=== PATIENT | female | born 1985 | race African-American/Black ===

== ENCOUNTER → 2019-05-06 13:09 | Outpatient (CLI) | payer OTHER | END | disposition home or self-care (01) | LOC: D.US 13:09 | PROVIDERS: ATTEND Nurse Practitioner Family | DX: N18.3 Chronic kidney disease, stage 3 (moderate) (principal); I10 Essential (primary) hypertension ==

== ENCOUNTER 2019-05-31 14:46 | Emergency (ER) | payer OTHER ==
[~2019-05-31] VITALS: Ht 160 cm; Wt 58.2 kg
[2019-05-31 14:50] VITALS: Ht 160 cm; Wt 58.2 kg
[2019-05-31] MEDS ORDERED: BP MED? (14:53)
[2019-05-31 17:10] VITALS: BP 141/90
== END 2019-05-31 17:12 | disposition home or self-care (01) ==
LOC: D.ER 14:46
DX: I10 Essential (primary) hypertension (principal)

== ENCOUNTER 2020-12-09 13:30 | Emergency (ER) | payer OTHER ==
[~2020-12-09] VITALS: Ht 160 cm; Wt 55.0 kg
[~2020-12-09 13:30] MED LIST: BP MED?
[2020-12-09 13:33] VITALS: BP 167/102; Ht 160 cm; Wt 55.0 kg
[2020-12-09] MEDS ORDERED: UNK BP MED (13:36)
[2020-12-09] MEDS ORDERED: [UNRECOGNIZED DRUG - REMARK] (13:37)
[2020-12-09] MEDS ORDERED: [UNRECOGNIZED DRUG - REMARK] (13:37)
[2020-12-09] MEDS ORDERED: FERROUS SULFAT325 MG PO (13:37)
[2020-12-09 14:18] LABS: BASOPHILS 0 % (0-2); EOSINOPHILS 0.2 % (0-7); HEMATOCRIT 38.8 % (36.0-48.0); HEMOGLOBIN 12.6 g/dL (12-16); IMMATURE GRANULOCYTES 0.2 % (0-5); LYMPHOCYTE ABS# 1.92 10x3/uL (1.18-3.74); LYMPHOCYTES 22.4 % (15-50); MCH 28.4 pg (26.0-34.0); MCHC 32.5 g/dL (31.0-37.0); MCV 87.6 fL (80.0-100.0); MEAN PLATELET VOLUME 9.5 fL (7.4-10.4); MONOCYTES 7.9 % (2-11); NEUTROPHIL ABS# 5.95 10x3/uL (1.56-6.13); NEUTROPHILS 69.3 % (40-80); PLATELET COUNT 331 10x3/uL (130-400); RBC 4.43 10x6/uL (4.00-5.40); WBC 8.6 10x3/uL (4.8-10.8)
[2020-12-09 14:35] LABS: BILIRUBIN NEGATIVE (NEGATIVE); KETONE SMALL mg/dL (NEGATIVE); NITRITE NEGATIVE (NEGATIVE); UROBILINOGEN NORMAL mg/dL (< 2)
[2020-12-09 14:37] LABS: BACTERIA MODERATE HPF (NONE SEEN); WHITE CELLS - URINE 0-5 HPF (0-4)
[2020-12-09 14:42] LABS: ALBUMIN 3.6 g/dL (3.4-5.0); ALKALINE PHOSPHATASE 96 U/L (30-120); ALT (SGPT) 79 U/L (10-68); AMYLASE - SERUM 55 U/L (25-115); BILIRUBIN - TOTAL 0.37 mg/dL (0.2-1.3); CALC OSMOLALITY 278 mosm/kg (275-300); CALCIUM 10.6 mg/dL (8.5-10.1); CARBON DIOXIDE 28.4 mmol/L (21.0-32.0); CHLORIDE - SERUM 99 mmol/L (98-107); GLUCOSE 94 mg/dL (74-106); LIPASE 82 U/L (73-393); PROTEIN - SERUM 8.2 g/dL (6.4-8.2); SODIUM 139 mmol/L (136-145); TROPONIN-I < 0.017 ng/mL (0.000-0.060); UREA NITROGEN 16 mg/dL (7-18); eGFR NON AFRICAN AMERICAN 67 mL/min (90-120)
[2020-12-09 14:43] LABS: POTASSIUM - SERUM 2.8 mmol/L (3.5-5.1)
[2020-12-09 14:55] LABS: HCG SERUM NEGATIVE (NEGATIVE)
== END 2020-12-09 16:23 | disposition home or self-care (01) ==
LOC: D.ER 13:30
PROVIDERS: Family Medicine
DX: R07.9 Chest pain, unspecified (principal); R00.0 Tachycardia, unspecified; F14.10 Cocaine abuse, uncomplicated; F10.10 Alcohol abuse, uncomplicated; Y90.9 Presence of alcohol in blood, level not specified; I10 Essential (primary) hypertension; K21.9 Gastro-esophageal reflux disease without esophagitis; R11.2 Nausea with vomiting, unspecified

== ENCOUNTER 2020-12-15 09:23 | Inpatient (IN) | payer OTHER ==
[~2020-12-15] VITALS: Ht 160 cm; Wt 59.1 kg
[~2020-12-15 09:23] MED LIST changes: +FERROUS SULFAT325 MG PO; +UNK BP MED; +[UNRECOGNIZED DRUG - REMARK]; +[UNRECOGNIZED DRUG - REMARK]
--- NOTE | 2020-12-15 09:54 | NUR ---
RADIOLOGY AT BEDSIDE FOR X RAY.
[2020-12-15 10:06] LABS: BASOPHILS 0.1 % (0-2); EOSINOPHILS 0.6 % (0-7); HEMATOCRIT 40.3 % (36.0-48.0); HEMOGLOBIN 13.4 g/dL (12-16); IMMATURE GRANULOCYTES 0.2 % (0-5); LYMPHOCYTE ABS# 2.35 10x3/uL (1.18-3.74); LYMPHOCYTES 27.6 % (15-50); MCH 28.5 pg (26.0-34.0); MCHC 33.3 g/dL (31.0-37.0); MCV 85.6 fL (80.0-100.0); MEAN PLATELET VOLUME 9.7 fL (7.4-10.4); MONOCYTES 12.1 % (2-11); NEUTROPHIL ABS# 5.04 10x3/uL (1.56-6.13); NEUTROPHILS 59.4 % (40-80); PLATELET COUNT 336 10x3/uL (130-400); RBC 4.71 10x6/uL (4.00-5.40); RDW 12.8 % (11.5-14.5); WBC 8.5 10x3/uL (4.8-10.8)
[2020-12-15 10:16] VITALS: BP 186/111
[2020-12-15 10:31] LABS: ALBUMIN 3.2 g/dL (3.4-5.0); ALKALINE PHOSPHATASE 81 U/L (30-120); ALT (SGPT) 94 U/L (10-68); BILIRUBIN - TOTAL 0.42 mg/dL (0.2-1.3); CALC OSMOLALITY 273 mosm/kg (275-300); CALCIUM 10.6 mg/dL (8.5-10.1); CARBON DIOXIDE 34.1 mmol/L (21.0-32.0); CHLORIDE - SERUM 96 mmol/L (98-107); CREATINE KINASE 44 UL (21-215); GLUCOSE 134 mg/dL (74-106); PRO BNP 336 pg/mL (0-125); PROTEIN - SERUM 7.9 g/dL (6.4-8.2); SODIUM 135 mmol/L (136-145); TROPONIN-I < 0.017 ng/mL (0.000-0.060); UREA NITROGEN 17 mg/dL (7-18); eGFR NON AFRICAN AMERICAN 67 mL/min (90-120)
[2020-12-15 10:32] LABS: APTT 28.1 SECONDS (22.8-39.4); INR 1.16 (0.85-1.17); POTASSIUM - SERUM 2.5 mmol/L (3.5-5.1); PROTIME 13.7 SECONDS (11.6-15.0)
[2020-12-15 10:43] LABS: HCG SERUM NEGATIVE (NEGATIVE)
[2020-12-15 10:48] LABS: D-DIMER-QUANTITATIVE < 0.27 ug/mLFEU (0.20-0.54)
--- NOTE | 2020-12-15 11:05 | NUR ---
PATIENT REPORTS SHE STILL FEELS FATIGUED.
--- NOTE | 2020-12-15 11:54 | NUR ---
PATIENT ASSISTED TO BATHROOM FOR URINE SAMPLE
--- NOTE | 2020-12-15 12:06 | NUR ---
URINE SAMPLE SENT TO LAB.
[2020-12-15 12:08] VITALS: BP 182/108
[2020-12-15 13:01] LABS: BACTERIA FEW HPF (NONE SEEN); BILIRUBIN NEGATIVE (NEGATIVE); KETONE SMALL mg/dL (NEGATIVE); NITRITE NEGATIVE (NEGATIVE); SQUAMOUS EPITHELIAL 0-5 HPF (0-4); UROBILINOGEN 4 mg/dL (< 2); WHITE CELLS - URINE 0-5 HPF (0-4)
[2020-12-15 13:14] LABS: UDS - AMPHET NEGATIVE QUAL (NEGATIVE); UDS - BARB NEGATIVE QUAL (NEGATIVE); UDS - BENZO NEGATIVE QUAL (NEGATIVE); UDS - COCAINE NEGATIVE QUAL (NEGATIVE); UDS - OPIATE NEGATIVE QUAL (NEGATIVE); UDS - PCP NEGATIVE QUAL (NEGATIVE); UDS - THC POSITIVE QUAL (NEGATIVE)
--- NOTE | 2020-12-15 13:53 | NUR ---
DR CJ SKY AT BEDSIDE.
--- NOTE | 2020-12-15 14:00 | NUR ---
ATTEMPTED TO CALL REPORT TO [facility] FOR ROOM 0. STATES THAT NURSE IS UNAVAILABLE TO TAKE REPORT. WILL REATTEMPT.
--- NOTE | 2020-12-15 14:20 | NUR ---
NURSING ROUND PERFORMED. DANIEL.
[2020-12-15 14:36] VITALS: BP 185/99
--- NOTE | 2020-12-15 14:36 | NUR ---
REPORT GIVEN TO FRANKLIN VILLA ON MED II.
[2020-12-15] MEDS ORDERED: PROTONIX40 MG PO (15:08)
[2020-12-15] MEDS ORDERED: KEPPRA500 MG PO (15:08)
[2020-12-15] MEDS ORDERED: BISOPROLOL-HCT1 EAC1 PO (15:09)
[2020-12-15 15:33] VITALS: BP 167/112; Ht 160 cm; Wt 59.1 kg
[2020-12-15 16:31] VITALS: BP 170/94
[2020-12-15 16:50] LABS: ERYTHROCYTE SEDIMENTATION RATE 32 mm/hr (0-20)
[2020-12-15 19:10] LABS: C-REACTIVE PROTEIN 0.8 mg/dL (0.0-0.9)
[2020-12-15 19:19] LABS: POTASSIUM - SERUM 3.5 mmol/L (3.5-5.1)
--- NOTE | 2020-12-15 19:56 | NUR ---
RECEIVED REPORT, WILL ASSUME CARE OF PT, RESTING, NO DISTRESS NOTICED AT THIS TIME, BED IS LOW, SRX2, CALL LIGHT IN REACH, WILL CONTINUE PLAN OF CARE
--- NOTE | 2020-12-15 21:00 | NUR ---
SPOKE WITH ISAURO ABOUT HR@ 140, WILL FOLLOW FOR NEW ORDERS
[2020-12-15 21:54] VITALS: BP 159/83
[2020-12-16 00:52] VITALS: BP 112/70
[2020-12-16 05:18] VITALS: BP 115/69
[2020-12-16 05:52] LABS: BASOPHILS 0.2 % (0-2); EOSINOPHILS 1.5 % (0-7); HEMATOCRIT 33.1 % (36.0-48.0); IMMATURE GRANULOCYTES 0.3 % (0-5); LYMPHOCYTE ABS# 2.48 10x3/uL (1.18-3.74); LYMPHOCYTES 38.4 % (15-50); MCH 27.7 pg (26.0-34.0); MCV 86.4 fL (80.0-100.0); MEAN PLATELET VOLUME 9.5 fL (7.4-10.4); MONOCYTES 14.4 % (2-11); NEUTROPHIL ABS# 2.92 10x3/uL (1.56-6.13); NEUTROPHILS 45.2 % (40-80); PLATELET COUNT 294 10x3/uL (130-400); RBC 3.83 10x6/uL (4.00-5.40); RDW 12.8 % (11.5-14.5); WBC 6.5 10x3/uL (4.8-10.8)
[2020-12-16 06:07] LABS: HEMOGLOBIN 10.6 g/dL (12-16)
[2020-12-16 06:26] LABS: ALBUMIN 2.4 g/dL (3.4-5.0); ALKALINE PHOSPHATASE 57 U/L (30-120); ALT (SGPT) 60 U/L (10-68); BILIRUBIN - TOTAL 0.36 mg/dL (0.2-1.3); CALC OSMOLALITY 274 mosm/kg (275-300); CALCIUM 9.4 mg/dL (8.5-10.1); CARBON DIOXIDE 28.9 mmol/L (21.0-32.0); CHLORIDE - SERUM 103 mmol/L (98-107); CREATININE - SERUM 0.7 mg/dL (0.6-1.3); GLUCOSE 93 mg/dL (74-106); MAGNESIUM - SERUM 2.3 mg/dL (1.8-2.4); PHOSPHOROUS 3.5 mg/dL (2.5-4.9); POTASSIUM - SERUM 3.4 mmol/L (3.5-5.1); PROTEIN - SERUM 5.8 g/dL (6.4-8.2); SODIUM 138 mmol/L (136-145); UREA NITROGEN 11 mg/dL (7-18); eGFR NON AFRICAN AMERICAN > 90 mL/min (90-120)
[2020-12-16 06:37] LABS: APTT 29.7 SECONDS (22.8-39.4); INR 1.23 (0.85-1.17); PROTIME 14.4 SECONDS (11.6-15.0)
[2020-12-16 07:00] VITALS: BP 115/70
[2020-12-16] MEDS ORDERED: BISOPROLOL FUMAR5 MG PO (12:35)
[2020-12-16] MEDS ORDERED: KLOR-CON M2020 MEQ PO (12:36)
--- NOTE | 2020-12-16 14:38 | MORECARE ---
CASE MANAGEMENT DISCHARGE SUMMARY PATIENT: SHIVA SUNSHINE UNIT: [id number] ADM DATE: 12/15/20 AGE: 35 : 87 SEX: F ROOM/BED: D.4990 AUTHOR: ALLEN GAN PHYSICIAN: REFERRING PHYSICIAN: ANATOLIY CORONA MD DATE OF SERVICE: 12/16/20 Discharge Plan Patient Name: SHIVA SUNSHINE Facility: [facility]:[place] : 1985 Planned Disposition: Home Anticipated Discharge Date: 12/16/20 Discharge Date: Expected LOS: 1 Initial Reviewer: NAVDEEP Initial Review Date: 12/15/2020 Generated: 12/16/20 3:37 pm Comments DCP- Discharge Planning Updated by [email or web address]: Cliff Meyer on 12/16/20 1:[address] CM met with patient to complete DC plan and to evaluate needs. Patient lives independently with family. At discharge, the patient plans to return home and feels this is a safe discharge. CM discussed availability of home health, rehab services, and medical equipment. Patient declined HHS, SNF, IPR, and DME. Patient voiced no other needs at this time and is satisfied with DC plan. CM will continue to follow and will assist as needed with dc plans/needs. DCPIA - Discharge Planning Initial Assessment Updated by [email or web address]: Cliff Meyer on 12/16/20 2:35 pm * Is the patient Alert and Oriented? Yes * How many steps to enter\exit or inside your home? 3/0 * PCP JOSE * Pharmacy AD * Preadmission Environment Home with Family * ADLs Independent * Equipment None * Other Equipment N/A * Community resources currently utilized None * Please name any agencies selected above. N/A * Additional services required to return to the preadmission environment? No * Can the patient safely return to the preadmission environment? Yes * Has this patient been hospitalized within the prior 30 days at any hospital? No Patient Name: SHIVA SUNSHINE Page 19792 at 1435 All edits/amendments must be made on the electronic document DICTATION DATE: 12/16/20 1438 WOOD TANK ERECTOR: GIANNA 12/16/20 1438 RPT#: [id number] DC DATE: STATUS: ADM IN [facility] [address] [place] [address] END OF REPORT
--- NOTE | 2020-12-18 07:53 | MORECARE ---
CASE MANAGEMENT DISCHARGE SUMMARY PATIENT: SHIVA SUNSHINE UNIT: [id number] ADM DATE: 12/15/20 AGE: 35 : 87 SEX: F ROOM/BED: D.2240 AUTHOR: ALLEN GAN PHYSICIAN: REFERRING PHYSICIAN: ANATOLIY CORONA MD DATE OF SERVICE: 12/18/20 Discharge Plan Patient Name: SHIVA SUNSHINE Facility: [facility]:[place] : 1985 Planned Disposition: Home Anticipated Discharge Date: 12/16/20 Discharge Date: 12/16/2020 Expected LOS: 1 Initial Reviewer: NAVDEEP Initial Review Date: 12/15/2020 Generated: 12/18/20 8:52 am Comments DCP- Discharge Planning Updated by [id number]: Cliff Meyer on 12/16/20 1:[address] CM met with patient to complete DC plan and to evaluate needs. Patient lives independently with family. At discharge, the patient plans to return home and feels this is a safe discharge. CM discussed availability of home health, rehab services, and medical equipment. Patient declined HHS, SNF, IPR, and DME. Patient voiced no other needs at this time and is satisfied with DC plan. CM will continue to follow and will assist as needed with dc plans/needs. DCPIA - Discharge Planning Initial Assessment Updated by [email or web address]: Cliff Meyer on 12/16/20 2:35 pm * Is the patient Alert and Oriented? Yes * How many steps to enter\exit or inside your home? 3/0 * PCP JOSE * Pharmacy AD * Preadmission Environment Home with Family * ADLs Independent * Equipment None * Other Equipment N/A * Community resources currently utilized None * Please name any agencies selected above. N/A * Additional services required to return to the preadmission environment? No * Can the patient safely return to the preadmission environment? Yes * Has this patient been hospitalized within the prior 30 days at any hospital? No Last DP export: 12/16/20 1:38 pm Patient Name: SHIVA SUNSHINE Page [id number] at 0753 All edits/amendments must be made on the electronic document DICTATION DATE: 12/18/20 0753 WAREHOUSE INCENTIVE SELECTOR: GIANNA 12/18/20 0753 RPT#: [id number] DC DATE:12/16/20 STATUS: DIS IN [facility] [address] [place] [address] END OF REPORT
== END 2020-12-16 18:41 | disposition home or self-care (01) | DRG 641 ==
LOC: D.ER 09:23 → D.EDHOLD 13:23 → OBSVTIME 13:23 → D.M2 13:54
PROVIDERS: Family Medicine; ADMIT Emergency Medicine; ATTEND Emergency Medicine
DX: E87.6 Hypokalemia (principal); R11.2 Nausea with vomiting, unspecified; E86.0 Dehydration; F14.10 Cocaine abuse, uncomplicated; F12.10 Cannabis abuse, uncomplicated; K21.9 Gastro-esophageal reflux disease without esophagitis

== ENCOUNTER 2021-03-13 19:39 | Inpatient (IN) | payer OTHER ==
[~2021-03-13] VITALS: Ht 160 cm; Wt 56.8 kg
[~2021-03-13 19:39] MED LIST changes: +BISOPROLOL FUMAR5 MG PO; +BISOPROLOL-HCT1 EAC1 PO; +KEPPRA500 MG PO; +KLOR-CON M2020 MEQ PO; +PROTONIX40 MG PO
[2021-03-13 20:15] LABS: BASOPHILS 1.1 % (0-2); EOSINOPHILS 0.6 % (0-7); HEMATOCRIT 35.7 % (36.0-48.0); HEMOGLOBIN 11.6 g/dL (12-16); LYMPHOCYTES 31.6 % (15-50); MCH 27.1 pg (26.0-34.0); MCHC 32.5 g/dL (31.0-37.0); MCV 83.4 fL (80.0-100.0); MEAN PLATELET VOLUME 8.3 fL (7.4-10.4); MONOCYTES 13.4 % (2-11); NEUTROPHILS 53.3 % (40-80); PLATELET COUNT 320 10x3/uL (130-400); RBC 4.28 10x6/uL (4.00-5.40); RDW 13.9 % (11.5-14.5); WBC 12.5 10x3/uL (4.8-10.8)
[2021-03-13 20:22] LABS: CALC OSMOLALITY 282 mosm/kg (275-300); CALCIUM 10.3 mg/dL (8.5-10.1); CARBON DIOXIDE 24.1 mmol/L (21.0-32.0); CHLORIDE - SERUM 101 mmol/L (98-107); CREATININE - SERUM 1.6 mg/dL (0.6-1.3); GLUCOSE 135 mg/dL (74-106); POTASSIUM - SERUM 3.1 mmol/L (3.5-5.1); SODIUM 139 mmol/L (136-145); UREA NITROGEN 22 mg/dL (7-18); eGFR NON AFRICAN AMERICAN 39 mL/min (90-120)
[2021-03-13 20:29] LABS: INR 1.3 (0.85-1.17)
[2021-03-13 20:30] LABS: D-DIMER-QUANTITATIVE 0.89 ug/mLFEU (0.20-0.54)
[2021-03-13 20:30] LABS: HCG SERUM NEGATIVE (NEGATIVE)
[2021-03-13 20:38] LABS: UDS - AMPHET NEGATIVE QUAL (NEGATIVE); UDS - BARB NEGATIVE QUAL (NEGATIVE); UDS - BENZO NEGATIVE QUAL (NEGATIVE); UDS - COCAINE POSITIVE QUAL (NEGATIVE); UDS - OPIATE NEGATIVE QUAL (NEGATIVE); UDS - PCP NEGATIVE QUAL (NEGATIVE); UDS - THC POSITIVE QUAL (NEGATIVE)
[2021-03-13 20:40] LABS: ALBUMIN 3.5 g/dL (3.4-5.0); ALKALINE PHOSPHATASE 91 U/L (30-120); ALT (SGPT) 91 U/L (10-68); BILIRUBIN - TOTAL 0.49 mg/dL (0.2-1.3); CKMB 0.7 U/L (0.0-3.6); CREATINE KINASE 357 UL (21-215); MAGNESIUM - SERUM 1.5 mg/dL (1.8-2.4); PRO BNP 800 pg/mL (0-125)
[2021-03-13 20:41] LABS: BILIRUBIN NEGATIVE (NEGATIVE); KETONE MODERATE mg/dL (NEGATIVE); NITRITE NEGATIVE (NEGATIVE); UROBILINOGEN NORMAL mg/dL (< 2)
--- NOTE | 2021-03-13 20:42 | NUR ---
PT PACING AROUND ROOM, PULLED IV OUT, PT STATES SHE THOUGHT SHE WAS DONE, HOOKED PT BACK UP TO MONITOR AND INFORMED TAY MONGE
[2021-03-13 20:46] LABS: BACTERIA MODERATE HPF (NONE SEEN); SQUAMOUS EPITHELIAL 0-5 HPF (0-4)
[2021-03-13 20:52] LABS: HCG URINE NEGATIVE (NEGATIVE)
[2021-03-13 21:02] VITALS: BP 154/90
[2021-03-13 21:25] LABS: LIPASE 45 U/L (73-393); TROPONIN-I < 0.017 ng/mL (0.000-0.060)
[2021-03-13 22:05] VITALS: BP 137/85
[2021-03-13 23:05] VITALS: BP 159/93
[2021-03-13 23:42] LABS: T4 THYROXIN - FREE 5.56 ng/dL (0.76-1.46)
[2021-03-14] VITALS (10 sets, daily range): BP systolic 118–164; BP diastolic 61–104; BMI 24.5
--- NOTE | 2021-03-14 00:05 | NUR ---
PT PLACED ON BIPAP
[2021-03-14 05:24] LABS: BASOPHILS 0.7 % (0-2); HEMATOCRIT 30.3 % (36.0-48.0); HEMOGLOBIN 9.9 g/dL (12-16); LYMPHOCYTES 31.5 % (15-50); MCH 27.3 pg (26.0-34.0); MCHC 32.8 g/dL (31.0-37.0); MCV 83.2 fL (80.0-100.0); MEAN PLATELET VOLUME 7.6 fL (7.4-10.4); MONOCYTES 12.1 % (2-11); NEUTROPHILS 54.7 % (40-80); RBC 3.64 10x6/uL (4.00-5.40)
[2021-03-14 05:27] LABS: PLATELET COUNT 229 10x3/uL (130-400); WBC 7.3 10x3/uL (4.8-10.8)
[2021-03-14 06:35] LABS: ALBUMIN 2.8 g/dL (3.4-5.0); ALKALINE PHOSPHATASE 75 U/L (30-120); ALT (SGPT) 84 U/L (10-68); BILIRUBIN - TOTAL 0.49 mg/dL (0.2-1.3); CALCIUM 9.6 mg/dL (8.5-10.1); CARBON DIOXIDE 24.1 mmol/L (21.0-32.0); CHLORIDE - SERUM 109 mmol/L (98-107); GLUCOSE 107 mg/dL (74-106); POTASSIUM - SERUM 3.5 mmol/L (3.5-5.1); PRO BNP 664 pg/mL (0-125); SODIUM 144 mmol/L (136-145)
[2021-03-14 06:36] LABS: CALC OSMOLALITY 287 mosm/kg (275-300); CREATININE - SERUM 0.7 mg/dL (0.6-1.3); MAGNESIUM - SERUM 2.5 mg/dL (1.8-2.4); UREA NITROGEN 15 mg/dL (7-18); eGFR NON AFRICAN AMERICAN > 90 mL/min (90-120)
[2021-03-14 06:37] LABS: CREATINE KINASE 255 UL (21-215)
[2021-03-14 06:41] LABS: CKMB 0.1 U/L (0.0-3.6)
[2021-03-14 11:13] LABS: CKMB 0.5 U/L (0.0-3.6); CREATINE KINASE 248 UL (21-215)
[2021-03-14 11:15] LABS: TROPONIN-I < 0.017 ng/mL (0.000-0.060)
[2021-03-14 16:42] LABS: CKMB 0.2 U/L (0.0-3.6); CREATINE KINASE 250 UL (21-215)
[2021-03-14 16:44] LABS: TROPONIN-I < 0.017 ng/mL (0.000-0.060)
[2021-03-14 23:22] LABS: CKMB 0.3 U/L (0.0-3.6); CREATINE KINASE 222 UL (21-215); TROPONIN-I < 0.017 ng/mL (0.000-0.060)
[2021-03-15 04:00] VITALS: BP 144/104
--- NOTE | 2021-03-15 08:06 | NUR ---
5) BP 179/111 HEART RATE 144. CALLED BRYSON GAITAN APN NEW ORDERS REC'.ATIVAN 1MG GIVEN IV SL LEFT AC.ALSO LOPRESSER 5MG GIVEN IV TITRATED WITH 2CC NS SLOWLY ORDERS FROM FIORDALIZA PASTRANA APN.MONITOR APPLIED BP 2220) NOW 158/86 HR 138 162/78 HR 139.HR 131. BP 154/103 HR 141.HR 120 AT 0000.REMAINS VERY DROWSY BUT AROUSES EASILY TO VERBAL STIMULI.CONTINUES TO SLEEP DENIES NAUSEA OR CHEST PAIN AT PRESENT TIME.0230) HR 123/124. 0800)HR 112.WILL CONTINUE TO MONITOR FOR ANY CHGES AND FOLLOW CURRENT PLAN OF CARE
[2021-03-15 08:46] VITALS: BP 143/86
[2021-03-15 10:46] VITALS: Ht 160 cm; Wt 56.8 kg
[2021-03-15 13:10] VITALS: BP 133/77
--- NOTE | 2021-03-15 13:30 | NUR ---
EKG COMPLETE, SCANNED AND ON THE CHART.
[2021-03-15 17:55] VITALS: BP 155/77
[2021-03-15 20:00] VITALS: BP 125/74
--- NOTE | 2021-03-15 20:00 | NUR ---
ALERT SITTING UP IN BED WATHCHING TV, DENIES PAIN OR NEEDS AT THIS TIME, CALL KATELYN CHAPIN
[2021-03-16] VITALS: BP 128/82
[2021-03-16 05:59] LABS: BASOPHILS 0.3 % (0-2); EOSINOPHILS 5.7 % (0-7); HEMATOCRIT 29.7 % (36.0-48.0); HEMOGLOBIN 9.8 g/dL (12-16); LYMPHOCYTES 40.8 % (15-50); MCH 28.4 pg (26.0-34.0); MCHC 33.1 g/dL (31.0-37.0); MEAN PLATELET VOLUME 8.5 fL (7.4-10.4); NEUTROPHILS 43.2 % (40-80); PLATELET COUNT 222 10x3/uL (130-400); RBC 3.46 10x6/uL (4.00-5.40); RDW 13.8 % (11.5-14.5); WBC 5.7 10x3/uL (4.8-10.8)
[2021-03-16 06:24] LABS: ALBUMIN 2.5 g/dL (3.4-5.0); ALKALINE PHOSPHATASE 65 U/L (30-120); ALT (SGPT) 80 U/L (10-68); BILIRUBIN - TOTAL 0.29 mg/dL (0.2-1.3); CALC OSMOLALITY 287 mosm/kg (275-300); CALCIUM 9.5 mg/dL (8.5-10.1); CARBON DIOXIDE 27.7 mmol/L (21.0-32.0); CHLORIDE - SERUM 109 mmol/L (98-107); CREATININE - SERUM 0.7 mg/dL (0.6-1.3); GLUCOSE 100 mg/dL (74-106); POTASSIUM - SERUM 3.3 mmol/L (3.5-5.1); PROTEIN - SERUM 6.1 g/dL (6.4-8.2); SODIUM 144 mmol/L (136-145); UREA NITROGEN 15 mg/dL (7-18); eGFR NON AFRICAN AMERICAN > 90 mL/min (90-120)
[2021-03-16 06:25] LABS: MAGNESIUM - SERUM 1.3 mg/dL (1.8-2.4)
[2021-03-16 06:28] LABS: MCV 85.7 fL (80.0-100.0)
--- NOTE | 2021-03-16 08:47 | NUR ---
PT EASILY AWAKENED. LAYING IN BED. NO NEEDS AT THIS TIME. WCTM
[2021-03-16 09:14] VITALS: BP 129/75
[2021-03-16 10:12] LABS: HEPATITIS C ANTIBODY <0.1 S/CO RAT (0.0-0.9)
[2021-03-16] MEDS ORDERED: ASPIRIN EC325 MG PO (12:51)
[2021-03-16] MEDS ORDERED: TIAZAC/CARDIZEM CD PO (12:51)
[2021-03-16 13:24] VITALS: BP 120/70
--- NOTE | 2021-03-16 15:11 | EC ---
PATIENT:SHIVA SUNSHINE DATE OF SERVICE: 03/14/21 SEX: F MEDICAL RECORD: [id number] DATE OF : [birth year] LOCATION:[facility] AGE OF PATIENT: 35 ADMISSION DATE: 03/14/21 REFERRING PHYSICIAN: INTERPRETING PHYSICIAN: LAEKSANDAR HUYNH MD ECHOCARDIOGRAM REPORT ECHO CHARGES 4 ECHO COMPLETE Date: 03/15/21 CLINICAL DIAGNOSIS: CP-ILLICIT DRUG USE ECHOCARDIOGRAPHIC MEASUREMENTS (adult normal given) AC root (d.<3.7cm) 2.7 cm LV Septum d (<1.2 cm> 0.8 cm Valve Excursion 1.4 cm LV Septum (systole) 1.1 cm Left Atria (s.<4.0cm> 3.4 cm LVPW d(<1.2cm) 0.7 cm RV (d.<2.3cm) 3.3 cm LVPW (sytole) 1.0 cm LV diastole(<5.6CM) 4.2 cm MV E-F(>70mm/sec) cm LV systole 2.7 cm LVOT Diameter 2.0 cm MV exc.(>10mm) cm Est.ejection fraction (50-75%) 60 % DOPPLER: LVIT cm/sec A 0.9 cm/sec E 1.3 cm/sec LA cm/sec RVSP 41 mmHg LVOT 132 cm/sec AOP1/2T m/s Asc. Ao 228 cm/sec RVOT 96 cm/sec RA 4.8 cm/sec PA 118 cm/sec AV Gradient Peak 20 mmHg AV Mean 9 mmHg AV Area 1.7 cm MV Gradient Peak 8 mmHg MV Mean 3 mmHg MV Area cm COMMENTS: Senior Courtroom Clerk: Rosa WEISS Baggage Checker: 3 Dr. Lanier TAPE# Pericardial Effusion N DATE OF SERVICE: 03/15/2021 CLINICAL INDICATION: Chest pain. INTERPRETATION: Normal left ventricular chamber size and contractile function with an ejection fraction of 55% to 60%. FINDINGS: Left atrial chamber appears normal. Right atrium and right ventricular chamber size and function appears normal. Aortic valve appears normal. No aortic stenosis/regurgitation. Mitral valve appears normal. Trace ECHOCARDIOGRAM REPORT [id number] SHIVA SUNSHINE mitral regurgitation. Tricuspid valve appears normal. Mild tricuspid regurgitation. Pulmonic valve not well visualized. No pulmonary regurgitation noted. No pericardial effusion noted. IMPRESSION: Normal left ventricular chamber size and contractile function with ejection fraction of 55% to 60%. TRANSINT:[id number] Voice Confirmation ID: [id number] DOCUMENT ID: [id number] ALEKSANDAR HUYNH MD at 1511 CC: [id number] DICTATION DATE: 03/15/21 1515 BANK VAULT CLERK: 03/15/21 1617 ADM IN [facility] [id number] [place] [address]
--- NOTE | 2021-03-16 15:29 | NUR ---
PT READY TO LEAVE AFTER MAG GETS REPLENISHED. CL IN REACH. WCTMA
--- NOTE | 2021-03-16 18:57 | NUR ---
IV THERAPY DISCHARGED FROM LEFT AC WITH TIP INTACT. DISCHARGE INSTRUCTIONS GIVEN. PT VERBALIZED UNDERSTANDING.
== END 2021-03-16 19:01 | disposition home or self-care (01) | DRG 897 ==
LOC: D.ER 19:39 → D.EDHOLD 03-14 05:14 → D.MS 03-14 05:14
PROVIDERS: Family Medicine; ADMIT Emergency Medicine; ATTEND Emergency Medicine
DX: F14.10 Cocaine abuse, uncomplicated (principal); M62.82 Rhabdomyolysis; N17.9 Acute kidney failure, unspecified; R00.0 Tachycardia, unspecified; I10 Essential (primary) hypertension; R07.9 Chest pain, unspecified; F10.10 Alcohol abuse, uncomplicated; E05.90 Thyrotoxicosis, unspecified without thyrotoxic crisis or storm